=== PATIENT | male | born 1975 | race African-American/Black ===

== ENCOUNTER 2021-07-06 21:23 | Emergency (ER) | payer SELFPAY ==
[~2021-07-06] VITALS: Ht 182.9 cm; Wt 100.0 kg
[2021-07-06 22:30] VITALS: BP 0/0
== END 2021-07-06 21:36 ==
LOC: ER 21:23
DX: I46.9 Cardiac arrest, cause unspecified (principal); E11.9 Type 2 diabetes mellitus without complications; I10 Essential (primary) hypertension
CPT/HCPCS: 92950; 99285